=== PATIENT | male | born 1980 | race Caucasian/White ===

== ENCOUNTER 2019-05-29 14:08 | Emergency (ER) | payer SELFPAY ==
[2019-05-29] MEDS ORDERED: ASPIRIN 81 MG TABLET, CHEWABLE PO ONE (14:19)
--- NOTE | 2019-05-29 14:23 | ER Document Report ---
ED Medical Screen (RME) - General Chief Complaint: Chest Pain > 30 Stated Complaint: CHEST PAIN, LEFT ARM TINGLING Time Seen by Provider: 05/29/19 14:19 Mode of Arrival: Ambulatory Information source: Patient Notes: 38-year-old male presented to ED for complaint of intermittent chest pain. He states his have been having them intermittently for about a year but they are becoming more more frequently. He states he also has a history of panic attacks. States he went to urgent care right before coming here when he told him that he was having chest pain. States he quit smoking a couple weeks ago he does drink on weekends and uses marijuana occasionally. He states his only medical history is a chest pain and the panic attacks. Patient is alert oriented respirations regular nonlabored speaking in full sentences. I have greeted and performed a rapid initial assessment of this patient. A comprehensive ED assessment and evaluation of the patient, analysis of test results and completion of medical decision making process will be conducted by an additional ED providers.
--- NOTE | 2019-05-29 15:04 | RADIOLOGY REPORT (SQ) ---
EXAM DESCRIPTION: CHEST 2 VIEWS COMPLETED DATE/TIME: 05/29/2019 2:54 pm REASON FOR STUDY: chest pain COMPARISON: None. EXAM PARAMETERS: NUMBER OF VIEWS: two views TECHNIQUE: Digital Frontal and Lateral radiographic views of the chest acquired. RADIATION DOSE: NA LIMITATIONS: none FINDINGS: LUNGS AND PLEURA: No opacities, masses or pneumothorax. No pleural effusion. MEDIASTINUM AND HILAR STRUCTURES: No masses or contour abnormalities. HEART AND VASCULAR STRUCTURES: Heart normal size. No evidence for failure. BONES: No acute findings. HARDWARE: None in the chest. OTHER: No other significant finding. IMPRESSION: NO ACUTE RADIOGRAPHIC FINDING IN THE CHEST. TECHNICAL DOCUMENTATION: JOB ID: [id number] [employer]- All Rights Reserved Reading location - IP/workstation name: [email or web address]
[2019-05-29 15:05] LABS: ABSOLUTE BASOPHILS # (AUTO) 0.1 10^3/uL (0.0-0.2); ABSOLUTE EOSINOPHILS # (AUTO) 0.3 10^3/uL (0.0-0.6); ABSOLUTE LYMPHOCYTES (AUTO) 2.1 10^3/uL (0.5-4.7); ABSOLUTE NEUT (AUTO) 5.8 10^3/uL (1.7-8.2); BASOPHILS % (AUTO) 0.7 % (0-2); EOSINOPHILS % (AUTO) 3.4 % (0-6); HEMATOCRIT 48.5 % (37.9-51.0); HEMOGLOBIN 16.4 g/dL (13.5-17.0); LYMPHOCYTES % (AUTO) 22.4 % (13-45); MEAN CORPUSCULAR HGB CONC 33.9 g/dL (32.0-36.0); MEAN CORPUSCULAR VOLUME 94 fl (80-97); MONOCYTES % (AUTO) 10.8 % (3-13); PLATELET COUNT 240 10^3/uL (150-450); RED BLOOD COUNT 5.13 10^6/uL (4.35-5.55); SEGMENTED NEUTROPHILS % (AUTO) 62.7 % (42-78); TOTAL CELLS COUNTED % (AUTO) 100 %; WHITE BLOOD COUNT 9.2 10^3/uL (4.0-10.5)
[2019-05-29 15:20] LABS: INTERNATIONAL RATION (INR) 1.04; PROTHROMBIN TIME 13.6 SEC (11.4-15.4)
[2019-05-29 15:21] LABS: PARTIAL THROMBOPLASTIN TIME 27.3 SEC (23.5-35.8)
[2019-05-29 15:23] LABS: D-DIMER 0.27 ug/mL (0.00-0.50)
[2019-05-29 15:24] LABS: ALBUMIN 4.7 g/dL (3.5-5.0); ALKALINE PHOSPHATASE 59 U/L (38-126); ANION GAP 13 (5-19); ASPARTATE AMINO TRANSFERASE 33 U/L (17-59); BILIRUBIN,DIRECT 0.2 mg/dL (0.0-0.4); BILIRUBIN,TOTAL 0.7 mg/dL (0.2-1.3); BLOOD UREA NITROGEN 18 mg/dL (7-20); CALCIUM 9.5 mg/dL (8.4-10.2); CARBON DIOXIDE 24 mmol/L (22-30); CHLORIDE 104 mmol/L (98-107); CREATINE KINASE 493 U/L (55-170); GLUCOSE 87 mg/dL (75-110); POTASSIUM 4.2 mmol/L (3.6-5.0); TOTAL PROTEIN 7.6 g/dL (6.3-8.2)
[2019-05-29 15:35] LABS: CREATINE KINASE MB 2.47 ng/mL (<4.55); NT PRO BNP 67 pg/mL (<125)
[2019-05-29 15:36] LABS: TROPONIN I < 0.012 ng/mL
--- NOTE | 2019-05-29 16:51 | ER Document Report ---
ED Cardiac - General Chief Complaint: Chest Pain > 30 Stated Complaint: CHEST PAIN, LEFT ARM TINGLING Time Seen by Provider: 05/29/19 14:19 Mode of Arrival: Ambulatory Notes: HPI: 38-year-old male with no significant past medical history who presents today stating for a month he has had some intermittent discomfort to his left arm that radiates to his chest. He is not sure what aggravates it or relieves it. He denies runny nose, congestion, cough, calf pain or leg swelling, recent trips or travel. Patient exercises almost an hour a day without pain. Patient recently quit smoking and states he has no family history of early heart attacks or strokes. ROS: See HPI All other review of systems reviewed and otherwise negative Reviewed vital signs and nursing note as charted by RN. PHYSICAL EXAM: CONSTITUTIONAL: Alert and oriented and responds appropriately to questions. Well-appearing; well-nourished HEAD: Normocephalic; atraumatic NECK: Supple without meningismus; non-tender CARD: Regular rate and rhythm; no murmurs; symmetric distal pulses RESP: Normal chest excursion without splinting or tachypnea; breath sounds clear and equal bilaterally; no wheezes, no rhonchi, no rales ABD/GI: Normal bowel sounds; non-distended; soft, non-tender; no palpable organomegaly or masses BACK: The back appears normal and is non-tender to palpation EXT: Normal ROM in all joints; non-tender to palpation; no edema; strong pulses to all 4 extremities SKIN: No acute lesions noted NEURO: CN 2-12 intact; 5/5 bilateral upper and lower extremity strength with sensation intact to light touch PSYCH: The patient's mood and manner are appropriate. Grooming and personal hygiene are appropriate. TRAVEL OUTSIDE OF THE [place] IN LAST 30 DAYS: No - Related Data Allergies/Adverse Reactions: No Known Allergies Allergy (Verified 05/29/19 14:24) Home Medications: testosterone injections Past Medical History - General Information source: Patient - Social History Smoking Status: Former Smoker Chew tobacco use (# tins/day): No Frequency of alcohol use: Social Drug Abuse: Marijuana Family History: Reviewed & Not Pertinent Patient has suicidal ideation: No Patient has homicidal ideation: No Physical Exam - Vital signs Vitals: Temp Pulse Resp BP Pulse Ox 97.8 F 75 16 142/74 H 97 05/29/19 14:24 05/29/19 14:24 05/29/19 14:24 05/29/19 14:24 05/29/19 14:24 Course - Re-evaluation Re-evalutation: Given the above history and physical, we will obtain a cardiac panel, x-ray the chest, EKG, and reassess. Patient is currently pain-free. Vital signs as recorded. Given the above history and physical lab and extremely low pretest probability of ACS, PE, or dissection. EKG HR 76, LAFB, no ST elevation or depression 05/29/19 17:04 Given the above results, EKG, d-dimer ordered in triage, troponin, x-ray of the chest, in this young healthy male, with a heart score less than or equal to 3, patient will be discharged home with strict return precautions and follow-up with the primary care provider. - Vital Signs Vital signs: Temp Pulse Resp BP Pulse Ox 97.8 F 75 17 129/76 H 99 05/29/19 14:24 05/29/19 14:24 05/29/19 16:01 05/29/19 16:01 05/29/19 16:01 - Laboratory Result Diagrams: 05/29/19 14:43 05/29/19 14:43 Laboratory results interpreted by me: 05/29/19 14:43 Creatine Kinase 493 H Discharge - Discharge Clinical Impression: Atypical chest pain Condition: Good Disposition: HOME, SELF-CARE Additional Instructions: Come back immediately with any increased pain, change in location or quality of pain, swelling of the arm, weakness or numbness, or any other acute problems. Please follow-up with the primary care physician when you return to your home status discussed.
[2019-05-29 17:37] VITALS: BP 125/74
--- NOTE | 2019-05-30 00:26 | EKG REPORT ---
SEVERITY:- ABNORMAL ECG - SINUS RHYTHM LEFT ANTERIOR FASCICULAR BLOCK : Confirmed by: Linda Odell 30-May-2019 00:25:45
== END 2019-05-29 17:38 | disposition home or self-care (01) ==
LOC: ER 14:08
DX: R07.89 Other chest pain (principal); R20.0 Anesthesia of skin; M79.602 Pain in left arm; Z87.891 Personal history of nicotine dependence; Z79.899 Other long term (current) drug therapy
CPT/HCPCS: 36415; 71046; 80053; 82550; 82553; 83735; 83880; 84443; 84484; 85025; 85379; 85610; 85730; 93005; 93010; 99284